=== PATIENT | female | born 1960 | race Caucasian/White ===

== ENCOUNTER 2021-11-10 23:10 | Emergency (ER) | payer MEDICAID, OTHER ==
[~2021-11-10] VITALS: Ht 154.9 cm; Wt 70.8 kg
[2021-11-10 23:10] VITALS: BP 195/90
== END 2021-11-11 00:43 | disposition home or self-care (01) ==
LOC: ER 23:10
DX: Q18.2 Other branchial cleft malformations (principal); R05.9 Cough, unspecified